=== PATIENT | male | born 1960 | race Caucasian/White ===

== ENCOUNTER 2022-05-19 04:32 | Inpatient (IN) | payer BC, SELFPAY ==
[2022-05-19] VITALS (24 sets, daily range): BP systolic 115–146; BP diastolic 69–103; PULSE 45–70; RESP 13–50; TEMP 36.2–37.2; O2SAT 98–100; BMI 28.3
--- NOTE | ~2022-05-19 | XR_ITS ---
EXAMINATION: XR chest 2V DATE: 05/19/2022 05:55 INDICATION: Chest pain. TECHNIQUE: Frontal and lateral views of the chest were obtained. COMPARISON: None. FINDINGS: The chest demonstrates clear lungs without pneumonia, pleural effusion, or pneumothorax. Th e heart size is normal. There is a prominent left paracardial fat pad. There are old healed right rib fractures. There are surgical clips in the neck. IMPRESSION: 1. No acute cardiopulmonary disease. Reviewed, dictated and finalized at location A.
--- NOTE | 2022-05-19 04:36 | ECG_ITS ---
Measurements Intervals [place] Rate: 53 P: 37 [place]: 136 QRS: 18 QRSD: 109 T: 95 QT: 410 QTc: 385 Interpretive Statements SINUS BRADYCARDIA NONSPECIFIC T-WAVE ABNORMAL ECG NO PREVIOUS ECG AVAILABLE FOR COMPARISON Electronically Signed On 05-20-2022 16:13:23 CDT by Jack Mccoy M.D.
--- NOTE | 2022-05-19 05:15 | ED.CHESTPAIN ---
HPI - Chest Pain General Chief Complaint: Chest Pain Stated Complaint: chest pain Time Seen by Provider: 05/19/22 04:51 History of Present Illness HPI narrative: 61-year-old male with history of squamous cell carcinoma presents to the emergency department for evaluation of some left-sided chest pain that woke him up from sleep. Patient states that at approximately 4 AM he woke up with left-sided chest pain that did radiate to his left shoulder or back. Patient did have some associated nausea with this. Patient reports he does have a strong history of anxiety but states he does not often have panic attacks like this. Patient states he does have a very exertional job and does not have chest pain with the exertion States he did have a short period of chest pain during the night a few days ago but it did resolve. Patient does have a history of squamous cell carcinoma. Patient denies any prior history of CA. Patient has not had a stress test. Patient has not had close follow-up with his primary care physician since 2014. Patient does take Cialis and did take this on Monday night. Related Data Allergies Allergy/AdvReac Type Severity Reaction Status Date / Time sulfanilamide Allergy Unknown Other Verified 05/19/22 05:42 No Known Allergies Allergy Verified 05/19/22 05:44 Review of Systems Review of Systems: CONSTITUTIONAL: Denies fever, chills, or sweats. EYES: Denies visual changes, redness, or discharge. ENT: Denies rhinorrhea, congestion, sore throat, or otalgia. CARDIOVASCULAR: See HPI RESPIRATORY: Denies cough or dyspnea. GASTROINTESTINAL: Denies abdominal pain, nausea, vomiting, or diarrhea. GENITOURINARY: Denies dysuria or hematuria. SKIN: Denies rash or itching. MUSCULOSKELETAL: Denies back pain, joint pain, or myalgia. NEUROLOGIC: Denies headache, numbness, or weakness. PSYCHIATRIC: History of anxiety PMFSH Family History Family History (Updated 07/24/14 @ 07:13 by DOCTOR UNKNOWN) Grandparent Family history of malignant neoplasm Social History Social History Smoking status: Never smoker Alcohol intake: never Exam Narrative: APPEARANCE: Well appearing, no pain, no distress, well-nourished. HEAD: normocephalic, atraumatic. EYES: PERRLA/EOMI, conjunctivae clear. NOSE: Normal no drainage NECK: Supple. No adenopathy, no masses. RESPIRATORY: Airway patent, respirations nonlabored. Clear to auscultation bilaterally, no rales, rhonchi, wheezing. CARDIOVASCULAR: Regular rate and rhythm without murmurs rubs or gallops. No reproducible chest wall tenderness to palpation ABDOMINAL: Soft, nontender, nondistended, normal bowel sounds MUSCULOSKELETAL: Moves all extremities. Strength/ROM intact, No edema, No calf tenderness. NEURO: Alert. Cranial nerves II through XII intact. Grossly intact SKIN: Warm, dry. Normal Color PSYCHIATRIC: Normal affect/mood. Course Course Emergency Course: EKG showed normal sinus rhythm with some T wave inversions, no evidence of acute STEMI Patient's initial troponin was elevated at 0.053. Patient was treated with aspirin, nitro and morphine on arrival and states that his pain is beginning to creep back up. Nitropaste was ordered. Additionally patient was ordered 12.5 of Cozaar, 20 mg of Crestor, 6.25 mg of carvedilol. Cardiology was consulted and they did not want any anticoagulation. They requested the hospitalist admit as primary. Hospitalist was consulted and agreed with the plan for admission. Patient will be admitted to the IMU for ops. Vital Signs Vital signs: Vital Signs Temperature 97.9 F 05/19/22 05:48 Pulse Rate 67 05/19/22 05:48 Respiratory Rate 20 05/19/22 05:48 Blood Pressure 146/103 H 05/19/22 05:48 Pulse Oximetry 98 05/19/22 05:48 Oxygen Delivery Room Air 05/19/22 05:48 Temperature 97.9 F 05/19/22 05:48 Pulse Rate 67 05/19/22 05:48 Respiratory Rate 20 05/19/22 05:48 Blood Pressure 146/103 H 05/19/22 05:48 Pulse Oximetry 9
[2022-05-19] MEDS: ASPIRIN 81 MG CHEWABLE TABLET 324 MG PO (05:17)
[2022-05-19 05:22] LABS: Basophils Absolute Auto 0.1 K/mm3 (0.0-0.1); Basophils Percent Auto 1.1 % (0.2-1.2); Eosinophils Absolute Auto 0.2 K/mm3 (0-0.3); Eosinophils Percent Auto 2.3 % (0-4.4); Hematocrit 50.8 % (42.0-52.0); Hemoglobin 16.9 g/dL (14.0-18.0); Immature Granulocyte Absolute 0.07 K/mm3 (0.00-0.031); Immature Platelet Fraction Pct 1.9 % (0.9-11.2); Lymphocytes Absolute Auto 1.57 K/mm3 (0.9-3.2); Lymphocytes Percent Auto 22.4 % (18.3-44.2); Mean Corpuscular HGB Conc 33.3 g/dl (32-36); Mean Corpuscular Hemoglobin 30.6 pg (26-34); Monocytes Absolute Auto 0.5 K/mm3 (0.1-0.6); Monocytes Percent Auto 7.4 % (2.6-8.5); Neutrophils Absolute Auto 4.6 K/mm3 (1.3-6.7); Neutrophils Percent Auto 65.8 % (45.5-73.1); Platelet Count Result 323 k/mm3 (150-375); Red Blood Count 5.52 M/mm3 (4.6-6.20); Red Cell Distribution Width 12.6 % (11.5-14.5)
[2022-05-19 05:31] LABS: INR 0.9; Prothrombin Time 11.9 Seconds (11.1-14.7)
[2022-05-19 05:32] LABS: Partial Thromboplastin Time 28.4 SECONDS (22.3-36.8)
[2022-05-19] MEDS: ONDANSETRON INJ 4 MG/2 ML VIAL IV PUSH (05:32)
[2022-05-19 05:33] LABS: Alanine Aminotransferase 26 U/L (6-50); Albumin Level 5.1 g/dL (3.5-5.1); Alkaline Phosphatase 93 U/L (38-126); Anion Gap 12 mmol/L (8-16); Aspartate Amino Transferase 30 U/L (17-59); Bilirubin,Total 0.7 mg/dL (0.2-1.3); Blood Urea Nitrogen 19 mg/dL (9-20); Calcium 9.5 mg/dL (8.4-10.2); Carbon Dioxide 24 mmol/L (22-30); Chloride 104 mmol/L (98-107); Estimated Glomerular Filt Rate > 60; Glucose 107 mg/dL (65-110); Lipase 223 U/L (23-300); Potassium 4.3 mmol/L (3.4-5.0); Sodium 140 mmol/L (137-145)
[2022-05-19] MEDS: NITROGLYCERIN SL 0.4 MG TABLET SUBLINGUAL (05:33)
[2022-05-19] MEDS: MORPHINE SULFATE (*CRX) 4 MG/ML INJ IV PUSH ×2 (05:33→06:43)
[2022-05-19 05:57] LABS: Troponin I 0.053 ng/mL (0.000-0.034)
[2022-05-19 08:06] LABS: Troponin I 0.087 ng/mL (0.000-0.034)
[2022-05-19] MEDS: SODIUM CHLORIDE 0.9% IV 1,000 ML 125 ML IV CONT ×2 (09:13→17:29)
--- NOTE | 2022-05-19 10:39 | ADMGEN ---
This patient, Austen Romo, was admitted to IMU Room 206-02 at 1030. Patient/family oriented to hospital policies and general routines including ID bracelet, bed and alarms, visiting hours, pain management, procedures, bathroom and other care routines, personal items, smoking policy, room service/diet, and visiting hours. Information on how to activate the Rapid Response Team has been discussed. Patient/Family are encouraged to report perceived risks to care and to ask questions if they do not understand what they are told or what they should do.
[2022-05-19 11:37] LABS: Troponin I 0.871 ng/mL (0.000-0.034)
[2022-05-19] MEDS: ROSUVASTATIN 10 MG TABLET 20 MG PO (12:42)
[2022-05-19] MEDS: LOSARTAN POTASSIUM 12.5 MG TABLET PO (12:42)
[2022-05-19] MEDS: NITROGLYCERIN OINTMENT 1 INCH DOSE TRANSDERM ×3 (12:42→23:27)
--- NOTE | 2022-05-19 16:31 | PM.IMHP ---
H&P: HPI History of Present Illness Date/Time: 05/19/22 16:31 Chief Complaint: chest pain Narrative: HPI narrative: 61-year-old male with history of squamous cell carcinoma presents to the emergency department for evaluation of some left-sided chest pain that woke him up from sleep.? Patient states that at approximately 4 AM he woke up with left-sided chest pain that did radiate to his left shoulder or back.? Patient did have some associated nausea with this.? Patient reports he does have a strong history of anxiety but states he does not often have panic attacks like this.? Patient states he does have a very exertional job and does not have chest pain with the exertion? States he did have a short period of chest pain during the night a few days ago but it did resolve. Patient does have a history of squamous cell carcinoma.? Patient denies any prior history of NH.? Patient has not had a stress test.? Patient has not had close follow-up with his primary care physician since 2014. currently patient is stable chest pain has improved compared to when he arrived however patient tropes are rising patient was seen by Cardiology started the patient on heparin and patient is scheduled to have a cardiac catheterization tomorrow will follow Review of Systems Constitutional: Constitutional: Reports no additional constitutional complaints [facility] Family History Family History (Updated 05/19/22 @ 10:56 by SASKIA Bourgeois) Grandparent Family history of malignant neoplasm Mother Aortic regurgitation Father Cerebellar ataxia Social History Social History Smoking status: Never smoker Alcohol intake: never Substance use type: marijuana Spiritual care concerns: No Meds Home Medications and Allergies Home Medications Medication Instructions Recorded Confirmed Type naproxen sodium 220 mg tablet 220 mg PO Q8H PRN Pain 05/19/22 05/19/22 History (Aleve) Allergies Allergy/AdvReac Type Severity Reaction Status Date / Time sulfanilamide Allergy Unknown Other Verified 05/19/22 05:42 Vital Signs Vital Signs - 24 hr 05/19/22 05:48 05/19/22 05:48 05/19/22 05:48 Temperature 97.9 F Pulse Rate 67 67 Respiratory Rate 20 Blood Pressure 146/103 H Pulse Oximetry 98 Oxygen Delivery Room Air Room Air 05/19/22 07:22 05/19/22 07:13 05/19/22 07:30 Temperature 97.9 F Pulse Rate 57 L 64 Respiratory Rate 16 17 Blood Pressure 140/94 H Pulse Oximetry 98 100 Oxygen Delivery 05/19/22 07:31 05/19/22 07:45 05/19/22 08:00 Temperature Pulse Rate 62 56 L 60 Respiratory Rate 20 16 13 Blood Pressure 144/90 H Pulse Oximetry 100 100 98 Oxygen Delivery 05/19/22 08:15 05/19/22 08:16 05/19/22 08:31 Temperature Pulse Rate 62 59 L 54 L Respiratory Rate 15 20 15 Blood Pressure 137/94 H Pulse Oximetry 100 100 100 Oxygen Delivery 05/19/22 08:49 05/19/22 09:00 05/19/22 09:01 Temperature Pulse Rate 52 L 53 L 52 L Respiratory Rate 17 15 13 Blood Pressure 133/96 H Pulse Oximetry 100 100 Oxygen Delivery 05/19/22 09:18 05/19/22 09:46 05/19/22 10:30 Temperature 97.1 F L Pulse Rate 56 L 49 L 45 L Respiratory Rate 16 14 16 Blood Pressure 142/98 H 120/70 Pulse Oximetry 98 100 100 Oxygen Delivery 05/19/22 12:00 05/19/22 12:00 05/19/22 16:00 Temperature 98.1 F 97.7 F Pulse Rate 47 L 54 L Respiratory Rate 16 16 Blood Pressure 121/69 137/89 Pulse Oximetry 100 100 Oxygen Delivery Room Air Exam Narrative: Patient is comfortable, NAD HEENT: eyes are clear and none icteric LUNGS: normal respiratory effort ABD: not distended Lower extremities: no edema SKIN: nonjaundiced Neuro: grossly intact. H&P: Results Labs Labs: Short CBC 05/19/22 Range/Units 05:10 WBC 7.0 (4.5-10.0) K/mm3 Hgb 16.9 (14.0-18.0) g/dL Hct 50.8 (42.0-52.0) % Plt Count 323 (150-375) k/mm3 BMP 05/19/22 05:10 Sodium 1
--- NOTE | 2022-05-19 16:37 | ECG_ITS ---
Measurements Intervals [place] Rate: 57 P: 43 [place]: 144 QRS: 15 QRSD: 98 T: -2 QT: 436 QTc: 428 Interpretive Statements SINUS BRADYCARDIA NONSPECIFIC T-WAVE ABNORMALITY ABNORMAL ECG COMPARED TO ECG 05/19/2022 04:44:44 NO SIGNIFICANT DIFFERENCE Electronically Signed On 05-20-2022 16:36:15 CDT by Jack Mccoy M.D.
--- NOTE | 2022-05-19 16:58 | PM.CNCAR ---
Assessment and Plan Assessment and plan (1) Acute non-ST elevation myocardial infarction (NSTEMI): Code(s): I21.4 - Non-ST elevation (NSTEMI) myocardial infarction Status: Acute Plan This is a 61-year-old man without any prior cardiac history who came in this morning with the episode of chest pain that was obviously concerning. He has some nonspecific but new T-wave changes on his electrocardiogram and a small troponin rise. He appears to be comfortable at this time. I am going to start him on intravenous heparin infusion and plan for coronary angiography tomorrow morning. Jack Mccoy MD [facility] History of Present Illness History of Present Illness Consult date/time: 05/19/22 16:58 Reason For Visit: NSTEMI Narrative: This is a 61-year-old man I am seeing at the request of the hospitalist because of some chest pain with which he was admitted early today. The patient states that he is not known to have any cardiac problems prior to this that he can recall. He was awakened from sleep at about 4:00 a.m. in the morning with significant chest pain he describes a pressure-like sensation in the center of the chest radiating little bit to the left side and associated with a sense of some nausea and some numbness in the left arm. He states that a couple of days before this he had an episode like this that lasted for less than a couple of minutes he did not seek any medical attention at that time. This episode was more intense and did not subsided so he came to the emergency department. He states that over the course of several hours in the emergency department the symptoms gradually waned and and then shortly after that dissipated completely he thinks it disappeared on its own rather than responding to any nitroglycerin that he did receive in the emergency room. His electrocardiogram down there to a demonstrated sinus rhythm with some nonspecific T-wave changes but no evidence of acute KS. Troponin level has risen slightly to 0.8. He was irritated he states this afternoon when none of the Cardiology physicians have been in to see him all day and because of that he has been held NPO and was very unhappy about that. Other than that he appears to be in no distress at this time. I did have another EKG done while I am in the room which demonstrated sinus rhythm with nonspecific but new T-wave inversion across the precordial leads. He otherwise appears to be comfortable at this time. 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 He denies any history of hypertension diabetes or dyslipidemia. He did have a significant squamous cell cancer of the head and neck treated surgically and with radiation therapy at [facility] back in 2014. He stopped following with his oncologist at [place] few years ago. The patient's laboratory data is otherwise largely unremarkable his chest x-ray looks normal. He has been given aspirin, statin beta-lilian and losartan. He also has been given a nitro glycerin paste. Review of Systems Constitutional: Constitutional: Reports no additional constitutional complaints Eyes: Eyes: Reports no additional eye complaints ENT: Reports system reviewed and no additional complaints, except as documented Cardiovascular: Cardiovascular: Reports as per HPI Respiratory: Respiratory: Reports no additional respiratory complaints Gastrointestinal: Gastrointestinal: Reports nausea Musculoskeletal: Musculoskeletal: Reports no additional musculoskeletal complaints Integumentary/Breasts: Skin/Breast: Reports system reviewed and no additional complaints, except as docu Neurologic: Reports system reviewed and no additional complaints, except as documented Endocrine: Endocrine: Reports no additional endocrine complaints Hematologic/Lymphatic: Hematologic/Lymphatic: Reports no additional hematologic/lymphatic complaints Allerg
[2022-05-19] MEDS: HEPARIN SOD/D5W 100 UNITS/ML 25,000 UNITS/250 ML BAG 10 UNITS IV CONT (17:27)
[2022-05-19] MEDS: HEPARIN SODIUM 5,000 UNITS/ML VIAL 4000 UNITS IV PUSH (17:29)
[2022-05-19 18:00] LABS: Basophils Absolute Auto 0.1 K/mm3 (0.0-0.1); Basophils Percent Auto 0.6 % (0.2-1.2); Eosinophils Absolute Auto 0.1 K/mm3 (0-0.3); Eosinophils Percent Auto 1.1 % (0-4.4); Hematocrit 42.7 % (42.0-52.0); Hemoglobin 14.5 g/dL (14.0-18.0); Immature Granulocyte Absolute 0.04 K/mm3 (0.00-0.031); Immature Granulocyte Percent A 0.5 % (0-0.5); Lymphocytes Absolute Auto 1.32 K/mm3 (0.9-3.2); Lymphocytes Percent Auto 15.5 % (18.3-44.2); Mean Corpuscular Hemoglobin 31.2 pg (26-34); Mean Corpuscular Volume 91.8 fl (80-100); Mean Platelet Volume 8.8 fl (7.4-10.4); Monocytes Absolute Auto 0.5 K/mm3 (0.1-0.6); Monocytes Percent Auto 5.8 % (2.6-8.5); Neutrophils Absolute Auto 6.5 K/mm3 (1.3-6.7); Neutrophils Percent Auto 76.5 % (45.5-73.1); Platelet Count Result 262 k/mm3 (150-375); Red Blood Count 4.65 M/mm3 (4.6-6.20); Red Cell Distribution Width 12.9 % (11.5-14.5); White Blood Count 8.5 K/mm3 (4.5-10.0)
[2022-05-19 18:12] LABS: INR 1.1; Prothrombin Time 13.5 Seconds (11.1-14.7)
[2022-05-19 18:15] LABS: Partial Thromboplastin Time 156.1 SECONDS (22.3-36.8)
[2022-05-19] MEDS: ACETAMINOPHEN 325 MG TABLET 650 MG PO (21:09)
[2022-05-19 23:26] LABS: Partial Thromboplastin Time 58.2 SECONDS (22.3-36.8)
[2022-05-19] MEDS: HEPARIN SODIUM 5,000 UNITS/ML VIAL 3000 UNITS IV PUSH (23:36)
[2022-05-20] VITALS (38 sets, daily range): BP systolic 115–165; BP diastolic 77–115; PULSE 53–74; RESP 12–21; TEMP 36.4–37.3; O2SAT 98–100
[2022-05-20] MEDS: SODIUM CHLORIDE 0.9% IV 1,000 ML 125 ML IV CONT ×2 (01:29→10:27)
[2022-05-20 04:39] LABS: Hematocrit 39.6 % (42.0-52.0); Hemoglobin 13.7 g/dL (14.0-18.0); Mean Corpuscular HGB Conc 34.6 g/dl (32-36); Mean Corpuscular Hemoglobin 31.9 pg (26-34); Mean Corpuscular Volume 92.1 fl (80-100); Mean Platelet Volume 8.8 fl (7.4-10.4); Platelet Count Result 239 k/mm3 (150-375); Red Cell Distribution Width 12.7 % (11.5-14.5); White Blood Count 9.2 K/mm3 (4.5-10.0)
[2022-05-20 04:59] LABS: Anion Gap 5 mmol/L (8-16); Blood Urea Nitrogen 13 mg/dL (9-20); Calcium 8.2 mg/dL (8.4-10.2); Carbon Dioxide 24 mmol/L (22-30); Chloride 108 mmol/L (98-107); Estimated CRCL calculation 88 ml/min; Estimated Glomerular Filt Rate > 60; Glucose 101 mg/dL (65-110); Potassium 4.5 mmol/L (3.4-5.0); Sodium 137 mmol/L (137-145)
[2022-05-20] MEDS: NITROGLYCERIN OINTMENT 1 INCH DOSE TRANSDERM (06:21)
--- NOTE | 2022-05-20 07:45 | WPDMODSED ---
Moderate Sedation Note-Pt Data Patient Data Diagnosis: Non ST-elevation AL Present Complaint: Chest pain Procedure to be performed/Plan: Left heart catheterization/possible PCI Allergies Allergy/AdvReac Type Severity Reaction Status Date / Time sulfanilamide Allergy Unknown Other Verified 05/19/22 05:42 Home Medications Medication Instructions Recorded Confirmed Type naproxen sodium 220 mg tablet 220 mg PO Q8H PRN Pain 05/19/22 05/19/22 History (Aleve) Current Medications: Active Medications Acetaminophen (Acetaminophen 325 Mg Tablet) 650 mg PO Q6H PRN PRN Reason: Mild Pain (1-3) or Fever Last Admin: 05/19/22 21:09 Dose: 650 mg Aspirin (Aspirin 81 Mg Chewable Tablet) 81 mg PO DAILY@0800 [facility] Carvedilol (Carvedilol 6.25 Mg Tablet) 6.25 mg PO Q12HR [facility] Last Admin: 05/19/22 20:49 Dose: Not Given Heparin Sodium (Porcine) (Heparin Sodium 5,000 Units/Ml Vial) 4,000 units IV PUSH PRN PRN PRN Reason: aPTT less than 55 seconds Heparin Sodium (Porcine) (Heparin Sodium 5,000 Units/Ml Vial) 3,000 units IV PUSH PRN PRN PRN Reason: aPTT 55 - 70 seconds Last Admin: 05/19/22 23:36 Dose: 3,000 units Sodium Chloride (Normal Saline Iv) 1,000 mls @ 125 mls/hr IV CONT .Q8H [facility] Last Admin: 05/20/22 01:29 Dose: 125 mls/hr Heparin Sodium/Dextrose (Heparin Sodium/D5w 100 Units/Ml) 25,000 units in 250 mls @ 10 mls/hr IV CONT .Q24H [facility]; Protocol Last Titration: 05/20/22 05:04 Dose: 1,000 units/hr, 10 mls/hr Losartan Potassium (Losartan Potassium 12.5 Mg Tablet) 12.5 mg PO DAILY [facility] Last Admin: 05/19/22 12:42 Dose: 12.5 mg Morphine Sulfate (Morphine Sulfate (*Crx) 4 Mg/Ml Inj) 4 mg IV PUSH Q2H PRN PRN Reason: Pain Rated 7-10 Nitroglycerin (Nitroglycerin Ointment 1 Inch Dose) 1 inch TRANSDERM Q6HR [facility] Last Admin: 05/20/22 06:21 Dose: 1 inch Ondansetron HCl (Ondansetron Inj 4 Mg/2 Ml Vial) 4 mg IV PUSH Q4H PRN PRN Reason: Nausea Rosuvastatin Calcium (Rosuvastatin 10 Mg Tablet) 20 mg PO DAILY FOZIA Last Admin: 05/19/22 12:42 Dose: 20 mg Sedation/Anesthesia: No previous sedation/anesthesia problems (including family history). [facility] Family History Family History (Updated 05/19/22 @ 10:56 by SASKIA Bourgeois) Grandparent Family history of malignant neoplasm Mother Aortic regurgitation Father Cerebellar ataxia Social History Social History Smoking status: Never smoker Alcohol intake: never Substance use type: marijuana Spiritual care concerns: No Mod Sed Physical Exam Physical Exam Pre Procedural Exam: Normal: Appearance, Neck, Throat, Airway, Lungs, Heart Size, Heart Rate, Heart Rhythm, Neuro Exam and Extremities Hours since solid foods: 12 Hours since liquid intake: 12 Mallampati Classification: class II Internal Medicine - PN: Obj Da Vital Signs Vital Signs: Vital Signs - 24 hr 05/19/22 08:00 05/19/22 08:15 05/19/22 08:16 Temperature Pulse Rate 60 62 59 L Respiratory Rate 13 15 20 Blood Pressure 137/94 H Pulse Oximetry 98 100 100 Oxygen Delivery 05/19/22 08:31 05/19/22 08:49 05/19/22 09:00 Temperature Pulse Rate 54 L 52 L 53 L Respiratory Rate 15 17 15 Blood Pressure Pulse Oximetry 100 100 Oxygen Delivery 05/19/22 09:01 05/19/22 09:18 05/19/22 09:46 Temperature Pulse Rate 52 L 56 L 49 L Respiratory Rate 13 16 14 Blood Pressure 133/96 H 142/98 H Pulse Oximetry 100 98 100 Oxygen Delivery 05/19/22 10:30 05/19/22 12:00 05/19/22 12:00 Temperature 36.2 C L 36.7 C Pulse Rate 45 L 47 L Respiratory Rate 16 16 Blood Pressure 120/70 121/69 Pulse Oximetry 100 100 Oxygen Delivery Room Air 05/19/22 16:00 05/19/22 16:00 05/19/22 12:00 Temperature 36.5 C Pulse Rate 54 L 46 L Respiratory Rate 16 Blood Pressure 137/89 Pulse Oximetry 100 Oxygen Delivery Room Air 05/19/22 14:00 05/19/22 16:00 05/19/22 18:00 Temperature Pulse Rate 51 L 58 L 70 Respiratory Rate Blood Pr
--- NOTE | 2022-05-20 09:36 | ECG_ITS ---
Measurements Intervals [place] Rate: 56 P: 46 [place]: 144 QRS: 14 QRSD: 110 T: -42 QT: 429 QTc: 415 Interpretive Statements SINUS BRADYCARDIA INFERIOR MYOCARDIAL INFARCTION , OF INDETERMINATE AGE [40+ ms Q WAVE AND/OR ST/T ABNORMALITY IN II/aVF] MODERATE T-WAVE ABNORMALITY, CONSIDER ANTERIOR ISCHEMIA [-0.1+ mV T WAVE IN V3/V4] COMPARED TO ECG 05/19/2022 15:42:45 NO SIGNIFICANT DIFFERENCE Electronically Signed On 05-20-2022 16:47:53 CDT by Jack Mccoy M.D.
--- NOTE | 2022-05-20 09:40 | WPDCARDPROC ---
Cardiac Cath Procedure Note Date of procedure:: 05/20/22 Performing physician:: Jack Mccoy MD Indication:: acute coronary syndrome / non ST elevation [place] Brief clinical history:: this is a 61-year-old man with no prior history of coronary disease he entered the hospital with retrosternal chest pressure yesterday morning with radiation into the left arm. His electrocardiogram shows some nonspecific but new precordial T-wave inversion and he has had a modest troponin rise. Procedure Procedure performed:: Coronary angiography left ventriculography aortic root angiography PCI(AMAURI) to the mid to distal LAD Sedation/Medication given:: fentanyl 50 mg Versed 2 mg case start time 836 case end time 9:33 a.m. Access site:: right femoral artery Estimated blood loss:: 30 cc Procedure note:: patient was brought to the microbiology lab manager in the postabsorptive state where the right femoral triangle was prepared and draped in the normal fashion. Anesthesia was provided with 1% lidocaine infiltrated locally. Using the modified Seldinger technique the right femoral artery was punctured and a 5 [place]an vascular sheath was placed. I then used a 5 [place] FL4 catheter to engage and inject the left coronary artery in multiple projections. A 5 [place] JR4 catheter was unsuccessful in engaging or identifying the right coronary ostium. I then used a 5 [place] WRP catheter and then a 5 [place] AL1 catheter all with no success in identifying the location of the right coronary ostium. I then used a 5 [place] angled pigtail catheter to perform an aortic root injection in the 45 degree BULGARIAN projection and the same catheter to inject the left ventriculogram in the 30 degree ALICEA projection. Following this the cineangiograms were reviewed. PCI of the mid to distal LAD was recommended and carried out as detailed below. Prior to PCI the 5 [place]an sheath was exchanged over a guidewire for a 6 [place]an sheath. He received 325 mg of aspirin, 600 mg of clopidogrel and was anticoagulated with bolus and infusion of Angiomax for this intervention. Following PCI the sheath was sutured into position the patient was taken to the holding area for recovery and sheath removal. The procedure was well tolerated and uncomplicated. Findings:: Hemodynamics: Central aortic pressure 152/84 left ventricle 155 over 10 and diastolic 18. No gradient across the aortic valve. Left ventricle: The left ventricle is normal in size the mid to base inferior wall is akinetic. The remainder of the LV contracts well the global ejection fraction of visually estimated to be 50%. The left main coronary artery is nicely patent the left anterior descending is a large vessel extending down to and just around the apex. The mid to distal LAD has a focal high-grade stenosis of 99% appears to be the culprit for the patient's presentation. There is SUMIT 3 flow in the vessel. More proximally the LAD has a 60% stenosis just after the origin of the major diagonal branch. This does not appear to be flow-limiting. The circumflex is a medium caliber vessel giving rise to the marginal branches the circumflex is free of disease. The right coronary artery is proximally occluded. In the aortic root injection a small amount of filling in the conus branch can be seen but no antegrade filling in the right coronary otherwise. The right coronary artery RPDA and RPL branches can be seen receiving [id number] collateral filling on the left coronary injections. Vessel is clearly proximally occluded. Intervention: The left coronary artery was engaged using a 6 [place]an CLS 3.5 guiding catheter. I used a 0.014 BMW wire to wire the LAD down into the terminal apical portion of the vessel. The lesion was targeted in the mid to distal LAD as described above. This was pre-dilated using a 2 x 15 mm Ralf balloon. This was then stented using a 2.75 x 18 mm Orsiro drug-eluting stent. Following yovana
[2022-05-20] MEDS: LOSARTAN POTASSIUM 12.5 MG TABLET PO (10:41)
--- NOTE | 2022-05-20 11:45 | SUR.PHASEII ---
1030 Dr. Mccoy at bedside talking with patient, patient's Cady and mother Pat.
--- NOTE | 2022-05-20 14:03 | SUR.PHASEII ---
0951 Patient arrived to [facility] 4 post cardiac cath for phase II recovery.
--- NOTE | 2022-05-20 14:04 | SUR.PHASEII ---
Addendum entered by Nella Brothers RN 05/20/22 14:08: ACS, LHC, and coronary stent teaching and print outs reviewed with patient/. Patient's mother also in room. Original Note: 1331 Patient was transferred to back to IMU 206-2 via hospital bed and telepack from IMU. Bedside report given and groin site check and distal pulse check done with primary RN on IMU Radha.
--- NOTE | 2022-05-20 14:06 | SUR.PHASEII ---
1208 Dr. Mccoy on unit. He was made aware of patient's elevated BP and asked if he would like to make any medication adjustments. Plan to reassess and addressed later post hemostasis following sheath pull. Info relayed in report to IMU RN Radha to follow up on this if his BP continued to be persistently elevated after he leaves phase II recovery to inform Dr. Mccoy.
[2022-05-20] MEDS: ROSUVASTATIN 10 MG TABLET 20 MG PO (14:44)
--- NOTE | 2022-05-20 16:29 | PM.IMPN ---
Progress Note: A&P Assessment and Plan (1) Acute non-ST elevation myocardial infarction (NSTEMI): Code(s): I21.4 - Non-ST elevation (NSTEMI) myocardial infarction Status: Acute Plan HPI narrative: 61-year-old male with history of squamous cell carcinoma presents to the emergency department for evaluation of some left-sided chest pain that woke him up from sleep.? Patient states that at approximately 4 AM he woke up with left-sided chest pain that did radiate to his left shoulder or back.? Patient did have some associated nausea with this.? Patient reports he does have a strong history of anxiety but states he does not often have panic attacks like this.? Patient states he does have a very exertional job and does not have chest pain with the exertion? States he did have a short period of chest pain during the night a few days ago but it did resolve. Patient does have a history of squamous cell carcinoma.? Patient denies any prior history of [place].? Patient has not had a stress test.? Patient has not had close follow-up with his primary care physician since 2014. currently patient is stable chest pain has improved compared to when he arrived however patient tropes are rising patient was seen by Cardiology started the patient on heparin and patient is scheduled to have a cardiac catheterization tomorrow will follow. 05/20/2022 interval history: today patient had a cardiac catheterization is showed high-grade stenosis and LAD and was stented, currently patient states feeling much denies any chest pain shortness of breath or dizziness, plan is to monitor patient overnight and will discharge the patient home tomorrow, patient started on dual anti-platelet therapy, will continue to monitor. Subjective Date/time seen: 05/20/22 16:29 HPI narrative: 61-year-old male with history of squamous cell carcinoma presents to the emergency department for evaluation of some left-sided chest pain that woke him up from sleep.? Patient states that at approximately 4 AM he woke up with left-sided chest pain that did radiate to his left shoulder or back.? Patient did have some associated nausea with this.? Patient reports he does have a strong history of anxiety but states he does not often have panic attacks like this.? Patient states he does have a very exertional job and does not have chest pain with the exertion? States he did have a short period of chest pain during the night a few days ago but it did resolve. Patient does have a history of squamous cell carcinoma.? Patient denies any prior history of [place].? Patient has not had a stress test.? Patient has not had close follow-up with his primary care physician since 2014. currently patient is stable chest pain has improved compared to when he arrived however patient tropes are rising patient was seen by Cardiology started the patient on heparin and patient is scheduled to have a cardiac catheterization tomorrow will follow 05/20/2022 interval history: today patient had a cardiac catheterization is showed high-grade stenosis and LAD and was stented, currently patient states feeling much denies any chest pain shortness of breath or dizziness, plan is to monitor patient overnight and will discharge the patient home tomorrow, patient started on dual anti-platelet therapy, will continue to monitor Review of Systems Constitutional: Constitutional: Reports no additional constitutional complaints Exam Narrative: Patient is comfortable, NAD HEENT: eyes are clear and none icteric LUNGS: normal respiratory effort ABD: not distended Lower extremities: no edema SKIN: nonjaundiced Neuro: grossly intact. Objective Data Vital Signs Vital Signs: Vital Signs - 24 hr 05/19/22 18:00 05/19/22 20:00 05/19/22 20:49 Temperature 98.7 F Pulse Rate 70 50 L 54 L Respiratory Rate 50 H Blood Pressure 115/75 Pulse Oximetry 98 Oxygen Delivery 05/19/22 20:00 05/19/22 20:40 05/19/22 22:0
[2022-05-20] MEDS: carvediloL 6.25 MG TABLET PO (23:04)
[2022-05-21] VITALS (7 sets, daily range): BP systolic 122–133; BP diastolic 78–89; PULSE 50–77; RESP 16–18; TEMP 36.1–36.8; O2SAT 100
--- NOTE | 2022-05-21 05:11 | ECG_ITS ---
Measurements Intervals [place] Rate: 58 P: 49 [place]: 137 QRS: -7 QRSD: 102 T: -56 QT: 423 QTc: 416 Interpretive Statements SINUS BRADYCARDIA INFERIOR MYOCARDIAL INFARCTION , OF INDETERMINATE AGE [40+ ms Q WAVE AND/OR ST/T ABNORMALITY IN II/aVF] MODERATE T-WAVE ABNORMALITY, CONSIDER ANTEROLATERAL ISCHEMIA [-0.1+ mV T WAVE IN V3- V6] COMPARED TO ECG 05/20/2022 11:00:52 NO SIGNIFICANT CHANGES Electronically Signed On 05-22-2022 7:01:49 CDT by Jack Mccoy M.D.
[2022-05-21 05:18] LABS: Hematocrit 42.8 % (42.0-52.0); Hemoglobin 14.8 g/dL (14.0-18.0); Mean Corpuscular HGB Conc 34.6 g/dl (32-36); Mean Corpuscular Hemoglobin 31.6 pg (26-34); Mean Corpuscular Volume 91.3 fl (80-100); Mean Platelet Volume 9.6 fl (7.4-10.4); Platelet Count Result 264 k/mm3 (150-375); Red Blood Count 4.69 M/mm3 (4.6-6.20); Red Cell Distribution Width 12.8 % (11.5-14.5); White Blood Count 9.6 K/mm3 (4.5-10.0)
[2022-05-21 05:28] LABS: Anion Gap 6 mmol/L (8-16); Blood Urea Nitrogen 13 mg/dL (9-20); Calcium 8.7 mg/dL (8.4-10.2); Carbon Dioxide 26 mmol/L (22-30); Chloride 106 mmol/L (98-107); Estimated CRCL calculation 79 ml/min; Estimated Glomerular Filt Rate > 60; Glucose 103 mg/dL (65-110); Potassium 4.1 mmol/L (3.4-5.0); Sodium 138 mmol/L (137-145)
[2022-05-21] MEDS: ASPIRIN 81 MG CHEWABLE TABLET PO (08:30)
[2022-05-21] MEDS: LOSARTAN POTASSIUM 12.5 MG TABLET PO (08:31)
[2022-05-21] MEDS: ROSUVASTATIN 10 MG TABLET 20 MG PO (08:31)
[2022-05-21] MEDS: carvediloL 6.25 MG TABLET PO (08:31)
[2022-05-21] MEDS: CLOPIDOGREL BISULFATE 75 MG TABLET PO (08:31)
--- NOTE | 2022-05-21 10:15 | PM.PNCARD ---
Progress Note: A&P Assessment and Plan (1) Acute non-ST elevation myocardial infarction (NSTEMI): Code(s): I21.4 - Non-ST elevation (NSTEMI) myocardial infarction Status: Acute Plan 61-year-old man with coronary artery disease presenting with non ST elevation SD. Culprit lesion was in the mid to distal LAD as detailed in the catheterization note. PCI of this lesion was nicely successful. He does have moderate stenosis more proximally in the LAD for as I mentioned there in the report I was treat medically for now especially because of its proximity to a very large diagonal. The right coronary artery is chronically occluded and receives collateral filling. He appears to be a good candidate for discharge today. He will be seen in my office for follow-up in 2-3 weeks. He is instructed to restrict himself to sedentary activity following discharge. Phase 2 cardiac rehab referral has been placed Jack Mccoy MD [facility] Subjective Date/time seen: Date of service: 05/21/22 10:15 Interval history: Follow-up visit in this 61-year-old man with: Coronary artery disease presenting with acute coronary syndrome. Catheterization demonstrated chronic total occlusion of his right coronary artery with [id number] collateral filling and posterior akinesia. He did have a high-grade 99% mid to distal LAD lesion which was the culprit for his presentation. This lesion was treated successfully using a drug-eluting stent with an excellent result. There is a stenosis in the LAD more proximally as well which is not angiographically flow-limiting and is at the origin of a very large diagonal branch. For these reasons I would recommend treating this with medication this time. Patient feels well this morning as hopeful to be discharged. Long discussion with the patient about the details of his angiographic findings yesterday as well as the importance of adherence to dual anti-platelet therapy. Exam Const: General: comfortable and no acute distress HENMT: Mouth: Yes moist mucous membranes Eyes: Sclera: sclerae normal Neck: Neck: supple and no JVD Resp: Effort & Inspection: normal respiratory effort Auscultation: clear to auscultation bilaterally Cardio: Rate: regular rate Rhythm: regular rhythm Other: No murmur no gallop GI: GI Palp: Yes Soft to palpation Auscultation: normal bowel sounds Skin: General skin exam: normal color Neuro: Other: Normal cognition Extrem: General: normal to inspection Other: No edema, normal pulses Objective Data Vital Signs Vital Signs: Vital Signs - 24 hr 05/20/22 11:45 05/20/22 10:30 05/20/22 10:45 Temperature Pulse Rate 57 L 60 59 L Respiratory Rate 14 20 13 Blood Pressure 139/98 H 151/99 H 153/102 H Pulse Oximetry 100 99 98 Oxygen Delivery Room Air Room Air Room Air 05/20/22 11:00 05/20/22 11:15 05/20/22 11:30 Temperature Pulse Rate 58 L 59 L 53 L Respiratory Rate 16 14 19 Blood Pressure 150/83 H 128/95 H 152/95 H Pulse Oximetry 100 100 100 Oxygen Delivery Room Air Room Air Room Air 05/20/22 12:45 05/20/22 12:10 05/20/22 12:00 Temperature Pulse Rate 64 65 57 L Respiratory Rate 21 H 17 13 Blood Pressure 145/91 H 145/103 H 132/89 Pulse Oximetry 100 100 100 Oxygen Delivery Room Air Room Air Room Air 05/20/22 12:15 05/20/22 12:20 05/20/22 12:05 Temperature Pulse Rate 59 L 58 L 62 Respiratory Rate 14 14 15 Blood Pressure 148/100 H 154/88 H 150/89 H Pulse Oximetry 100 100 100 Oxygen Delivery Room Air Room Air Room Air 05/20/22 12:25 05/20/22 12:30 05/20/22 13:00 Temperature Pulse Rate 55 L 56 L 57 L Respiratory Rate 16 12 16 Blood Pressure 146/115 H 138/95 H 147/96 H Pulse Oximetry 100 100 100 Oxygen Delivery Room Air Room Air Room Air 05/20/22 13:15 05/20/22 13:30 05/20/22 14:00 Temperature Pulse Rate 54 L 58 L 65 Respiratory Rate 13 13 Blood Pressure 147/103 H 144/95 H Pulse Oximetry 100 99 Oxygen Delivery Room
--- NOTE | 2022-05-21 12:45 | PM.DS ---
DS: Admitting Diagnosis Discharge Date 05/21/2022 Admitting Diagnosis Chest pain DS: Discharge Diagnosis Discharge Diagnosis (1) Acute non-ST elevation myocardial infarction (NSTEMI): Code(s): I21.4 - Non-ST elevation (NSTEMI) myocardial infarction Status: Acute Plan HPI narrative: 61-year-old male with history of squamous cell carcinoma presents to the emergency department for evaluation of some left-sided chest pain that woke him up from sleep.? Patient states that at approximately 4 AM he woke up with left-sided chest pain that did radiate to his left shoulder or back.? Patient did have some associated nausea with this.? Patient reports he does have a strong history of anxiety but states he does not often have panic attacks like this.? Patient states he does have a very exertional job and does not have chest pain with the exertion? States he did have a short period of chest pain during the night a few days ago but it did resolve. Patient does have a history of squamous cell carcinoma.? Patient denies any prior history of [place].? Patient has not had a stress test.? Patient has not had close follow-up with his primary care physician since 2014. currently patient is stable chest pain has improved compared to when he arrived however patient tropes are rising patient was seen by Cardiology started the patient on heparin and patient is scheduled to have a cardiac catheterization tomorrow will follow. 05/20/2022 interval history: today patient had a cardiac catheterization is showed high-grade stenosis and LAD and was stented, currently patient states feeling much denies any chest pain shortness of breath or dizziness, plan is to monitor patient overnight and will discharge the patient home tomorrow, patient started on dual anti-platelet therapy, will continue to monitor. DS: Summary Hospital Course Reason for hospitalization: Chief Complaint: ?chest pain Narrative: HPI narrative: 61-year-old male with history of squamous cell carcinoma presents to the emergency department for evaluation of some left-sided chest pain that woke him up from sleep.? Patient states that at approximately 4 AM he woke up with left-sided chest pain that did radiate to his left shoulder or back.? Patient did have some associated nausea with this.? Patient reports he does have a strong history of anxiety but states he does not often have panic attacks like this.? Patient states he does have a very exertional job and does not have chest pain with the exertion? States he did have a short period of chest pain during the night a few days ago but it did resolve. Patient does have a history of squamous cell carcinoma.? Patient denies any prior history of [place].? Patient has not had a stress test.? Patient has not had close follow-up with his primary care physician since 2014. ?currently patient is stable chest pain has improved compared to when he arrived however patient tropes are rising patient was seen by Cardiology started the patient on heparin? and patient is scheduled to have a cardiac catheterization? tomorrow will follow Hospital Course: patient had a cardiac catheterization is showed high-grade stenosis LAD and was stented, currently patient states feeling much denies any chest pain shortness of breath or dizziness, plan is to monitor patient overnight and will discharge the patient home tomorrow, patient started on dual anti-platelet therapy,? will continue to monitor. Today patient is clinically stable seen by his Cardiology will discharge patient home today, Time Spent with Patient Time attestation: Total time spent providing and/or coordinating discharge services: Exam Narrative: Patient is comfortable, NAD HEENT: eyes are clear and none icteric LUNGS: normal respiratory effort ABD: not distended Lower extremities: no edema SKIN: nonjaundiced Neuro: grossly intact. DS: Data Data Completed and Pending Labs on day of discharge
--- NOTE | 2022-05-21 13:22 | PC.NURSE ---
Pt left off unit stable, with and all personal belongings. Pt refused W/C.
== END 2022-05-21 13:15 | disposition home or self-care (01) | DRG 247 ==
LOC: ANHED 07:20 → ANHIMU 08:56
PROVIDERS: Internal Medicine; Specialist; Admitting Provider Internal Medicine; Emergency Provider Emergency Medicine; PCP Family Medicine; Visit Provider Family Medicine
PROC: 4A023N7 Measurement of Cardiac Sampling and Pressure, Left Heart, Percutaneous Approach (ICD-10-PCS; CPT 93452; principal; 2022-05-20 08:00)
PROC: 027034Z Dilation of Coronary Artery, One Artery with Drug-eluting Intraluminal Device, Percutaneous Approach (ICD-10-PCS; 2022-05-20 08:00)
DX: I21.4 Non-ST elevation (NSTEMI) myocardial infarction (principal); I25.10 Atherosclerotic heart disease of native coronary artery without angina pectoris; Z85.9 Personal history of malignant neoplasm, unspecified
CPT/HCPCS: 36415; 71046; 80048; 80053; 83690; 84484; 85025; 85027; 85055; 85610; 85730; 93005; 93458; 96361; 96374; 96375; 96376; 99285; A9270; C1725; C1769; C1784; C1887; C1894; C9600; G0378; G0379; J0461; J0583; J1644; J2250; J2270; J2405; J3010; J7030; J7040

== ENCOUNTER → 2022-12-28 16:29 | Outpatient (CLI) | payer BC, SELFPAY ==
--- NOTE | ~2022-12-28 | US_ITS ---
EXAMINATION: US retroperitoneal comp DATE: 12/28/2022 16:51 INDICATION: Overactive bladder TECHNIQUE: Multiple grayscale and Doppler ultrasound images of the kidneys were obtained. COMPARISON: None. FINDINGS: The right kidney measures 10.7 x 5.1 x 5.1 cm. The left kidney measures 10.4 x 5.6 x 4.7 cm . The kidneys demonstrate normal parenchymal echogenicity. There is no hydronephrosis. The bladder is sonographically normal. IMPRESSION: 1. Normal kidneys without hydronephrosis. Reviewed, dictated and finalized at location L. CARE MANAGER
== END ==
PROVIDERS: PCP Family Medicine; Visit Provider Urology
DX: N32.81 Overactive bladder (principal)
CPT/HCPCS: 76770

== ENCOUNTER 2024-07-07 19:58 | Emergency (ER) | payer BC, SELFPAY ==
[2024-07-07 20:10] VITALS: BP 145/82; PULSE 68; RESP 20; TEMP 36.7; O2SAT 100
--- NOTE | 2024-07-07 22:27 | ED.DENTAL ---
HPI - Dental/Oral General Chief complaint: Dental/Oral Stated complaint: dental abcess Time Seen by Provider: 07/07/24 22:11 History of Present Illness HPI Narrative: 63-year-old male with history of NSTEMI, hypertension and head and neck squamous cell carcinoma presents to the emergency department for dental pain. Patient states a couple days ago he began having pain in the left lower molars. States yesterday his pain subsided but he woke up this morning with a large focal area of swelling to the left mandible. He denies fever, nausea vomiting, difficulty swallowing or breathing. He does state he has poor dentition secondary to several rounds of radiation in 2015 for squamous cell carcinoma. He had lesions removed from his tongue and tonsillectomy from squamous cell carcinoma , several lymph nodes removed in his neck and had approximately 30 rounds of radiation to his head and neck. His oncologist was Dr. Haynes at [facility]. he states he has not followed up in several years but had a negative PET scan when he discontinued chemotherapy in 2014. Patient states he contacted a family member who is a nurse practitioner prescribe the patient doxycycline. He has an appointment with his dentist in 3 days. Related Data Home Medications Medication Instructions Recorded Confirmed naproxen sodium 220 mg tablet 220 mg PO Q8H PRN Pain 05/19/22 06/07/22 (Aleve) Allergies Allergy/AdvReac Type Severity Reaction Status Date / Time sulfanilamide Allergy Unknown Other Verified 07/07/24 20:16 Review of Systems Review of Systems: All systems reviewed & are unremarkable except as noted in HPI and below PMFSH Past Medical History Medical History Hypertension Lymph node cancer Overweight with body mass index (BMI) of 28 to 28.9 in adult Primary tonsillar squamous cell carcinoma Family History Family History Grandparent Family history of malignant neoplasm Mother Aortic regurgitation Father Cerebellar ataxia Social History Social History Smoking status: Never smoker Alcohol intake: never Substance use: current Substance use type: marijuana Living arrangements: with family Occupation/Education: occupation Spiritual care concerns: No Exam Narrative: GENERAL: Well-appearing, well-nourished, and in no acute distress. HEAD: Normocephalic, atraumatic. EYES: PERRLA and EOMI. ENT: Nares clear, no rhinorrhea or epistaxis. Mucous membranes moist. yellow raised plaque to the left inner cheek without tenderness. Poor dentition throughout with friable and inflamed gums. No periapical abscess. Floor mouth is soft without crepitus. Focal area of induration and edema to the left lower mandible without areas of fluctuance. No airway compromise. Patient tolerating secretions. No trismus. NECK: Supple. CHEST: Clear to auscultation. No respiratory distress. HEART: Regular rate and rhythm EXTREMITIES: Normal range of motion. No edema. SKIN: Warm, dry, no rash. NEURO: No focal deficits. Alert and oriented x3 Course Vital Signs Vital signs: Vital Signs Temperature 98.0 F 07/07/24 20:10 Pulse Rate 68 07/07/24 20:10 Respiratory Rate 20 07/07/24 20:10 Blood Pressure 145/82 H 07/07/24 20:10 Pulse Oximetry 100 07/07/24 20:10 Oxygen Delivery Room Air 07/07/24 20:10 Temperature 98.5 F 07/07/24 22:49 Pulse Rate 78 07/07/24 22:49 Respiratory Rate 16 07/07/24 22:49 Blood Pressure 137/75 07/07/24 22:49 Pulse Oximetry 100 07/07/24 22:49 Oxygen Delivery Room Air 07/07/24 20:10 MDM - Dental/Oral MDM Narrative Medical decision making narrative: 63-year-old male with remote history of squamous cell carcinoma presents to the emergency department for concerns for dental pain for the past couple of days an
[2024-07-07] MEDS: AMOXICILLIN/CLAVULANATE K 875-125 MG TAB 1 TABLET PO (22:37)
[2024-07-07 22:49] VITALS: BP 137/75; PULSE 78; RESP 16; TEMP 36.9; O2SAT 100
== END 2024-07-07 22:50 | disposition home or self-care (01) ==
PROVIDERS: Emergency Provider Physician Assistant; PCP Family Medicine
DX: K02.9 Dental caries, unspecified (principal); K13.70 Unspecified lesions of oral mucosa; R22.0 Localized swelling, mass and lump, head; I25.2 Old myocardial infarction; I10 Essential (primary) hypertension; E66.3 Overweight; Z68.27 Body mass index [BMI] 27.0-27.9, adult; Z85.828 Personal history of other malignant neoplasm of skin
CPT/HCPCS: 99283; A9270

== ENCOUNTER 2025-06-08 00:11 | Emergency (ER) | payer BC, SELFPAY ==
--- NOTE | ~2025-06-08 | XR_ITS ---
Lumbosacral Spine: AP and lateral views Clinical History: Pain Findings: There is straightening of the normal lumbar lordosis. The vertebral bodies and posterior e lements are intact. There is moderate degenerative disc narrowing at L5-S1. There is moderate to adva nced facet arthropathy throughout the lumbar spine. The sacroiliac joints are normally outlined. Impression: Moderate degenerative spondylosis overall, as detailed above. Reviewed, dictated and finalized at location M. Impression: Moderate degenerative spondylosis overall, as detailed above.
[2025-06-08 00:09] VITALS: BP 145/88; PULSE 89; RESP 16; TEMP 36.6; O2SAT 99
--- NOTE | 2025-06-08 00:46 | ED_ITS ---
HPI - Back Pain/Injury General Chief Complaint: Back Pain/Injury Stated Complaint: LOW BACK PAIN Time Seen by Provider: 06/08/25 00:23 Source: patient and family Mode of arrival: ambulatory Limitations: no limitations History of Present Illness HPI Narrative: 64 y/o WM in the ED via EMS for c/o low back pain X1 day. Pt states he felt soreness morning of June 07 when getting out of bed. Pt states he just dealt w/ the pain throughout the day, but noted it becoming unbearable later that evening, described as sharp. Pt called EMS to bring him to the ED. Pt has taken no medication for pain, as he was told not to take any NSAIDs d/t an MO 3-4 yrs ago. Pt denies any radiation of pain, CP, SOB, urinary incontinence or retention. Related Data Home Medications ?Medication ?Instructions ?Recorded ?Confirmed ?Last Taken ?Type carvedilol 12.5 mg tablet mg PO 01/20/25 Unknown History rosuvastatin 40 mg tablet mg PO 01/20/25 Unknown History Allergies Allergy/AdvReac Type Severity Reaction Status Date / Time sulfanilamide Allergy Unknown Other Verified 06/08/25 00:14 Review of Systems 2 Review of Systems: CONSTITUTIONAL: Denies fever, chills, or sweats. EYES: Denies visual changes, redness, or discharge. ENT: Denies rhinorrhea, congestion, sore throat, or otalgia. CARDIOVASCULAR: Denies chest pain, palpitations, or edema. RESPIRATORY: Denies cough or dyspnea. GASTROINTESTINAL: Denies abdominal pain, nausea, vomiting, or diarrhea. GENITOURINARY: Denies dysuria or hematuria. SKIN: Denies rash or itching. MUSCULOSKELETAL: Endorses back pain, denies radiation. Denies joint pain, or myalgia. NEUROLOGIC: Denies headache, numbness, or weakness. PSYCHIATRIC: Denies anxiety or depression. [facility] Past Medical History Medical History Primary tonsillar squamous cell carcinoma Acute non-ST elevation myocardial infarction (NSTEMI) CAD (coronary artery disease) Overweight with body mass index (BMI) of 28 to 28.9 in adult Lymph node cancer Hypertension Family History Family History Grandparent Family history of malignant neoplasm Mother Aortic regurgitation Father Cerebellar ataxia Social History Social History Smoking status: Never smoker Alcohol intake: never Substance use: current Substance use type: marijuana Do You Feel Safe in your Home?: Yes Lack of Transportation: No Lack of Food: Never True Current Housing: I Have Housing Concerned About Future Housing: No Difficulty Paying Gas/Electric Bills: No Difficulty Paying for Meds: No Currently Unemployed: No Education: Decline to Answer Difficulty w/ Childcare or Family Care: No Living arrangements: with family Occupation/Education: occupation Spiritual care concerns: No Exam 2 Narrative: GENERAL: Well-appearing, well-nourished, and in no acute distress. HEAD: Normocephalic, atraumatic. EYES: PERRLA and EOMI. ENT: Nares clear, no rhinorrhea or epistaxis. Mucous membranes moist. NECK: Supple. CHEST: Clear to auscultation. No respiratory distress. HEART: Regular rate and rhythm. No murmur heard. Normal peripheral pulses. ABDOMEN: Soft, nontender, nondistended, normal active bowel sounds. BACK: No spinal tenderness to the C/T/L spine. Slight pain w/ palpation of the lumbar paraspinal muscles. Neg straight leg raise. EXTREMITIES: Normal range of motion. No edema. SKIN: Warm, dry, no rash. NEURO: No focal deficits. Alert and oriented x3. PSYCH: Normal mood and affect. Course Vital Signs Vital signs: Vital Signs Temperature 36.6 C 06/08/25 00:09 Pulse Rate 89 06/08/25 00:09 Respiratory Rate 16 06/08/25 00:09 Blood Pressure 145/88 H 06/08/25 00:09 Pulse Oximetry 99 06/08/25 00:09 Oxygen Delivery Room Air 06/08/25 00:09 Temperature 36.6 C 06/08/25 00:09 Pulse Rate 89 06/08/25 00:09 Respiratory Rate 16 06/08/25 00:09 Blood Pressure 145/88 H 06/08/25 00:09 Pulse Oximetry 99 06/08/25 00:09 Oxygen Delivery Room Air 06/08/25 00:09 MDM - Back Pain/Injury MDM Narrative Medical decision making narrative: Patient given Toradol in the department, helping pain tremendously. CBC and CMP unremarkable, save elevated liver enzymes which can be addressed by primary care at next appointment. Patient able to walk lb and with pain, but denies urinary retention, incontinence, and paresthesias. X-ray normal showing no fracture Differential Diagnosis Differential diagnosis: Likely lumbar radiculopathy, sciatica and strain of lumbar region Medical Records Attestation: I reviewed the patient's medical records. Lab Data Attestation: I reviewed the patient's lab results. 06/08/25 00:33 06/08/25 00:33 Labs: Lab Results 06/08/25 Range/Units 00:33 WBC Pending RBC Pending Hgb Pending Hct Pending MCV Pending MCH Pending MCHC Pending RDW Pending Plt Count Pending MPV Pending Immature Gran % (Auto) Pending Neut % (Auto) Pending Lymph % (Auto) Pending [place] % (Auto) Pending Eos % (Auto) Pending Baso % (Auto) Pending Lymph # (Auto) Pending [place] # (Auto) Pending Eos # (Auto) Pending Baso # (Auto) Pending Abs Immat Gran (auto) Pending Absolute Neuts (auto) Pending Absolute Nucleated RBC Pending Nucleated RBC % Pending Sodium Pending Potassium Pending Chloride Pending Carbon Dioxide Pending Anion Gap Pending BUN Pending Creatinine Pending Estim Creat Clear Calc Pending Estimated GFR Pending Glucose Pending Calcium Pending Magnesium Pending Total Bilirubin Pending AST Pending ALT Pending Alkaline Phosphatase Pending Total Protein Pending Albumin Pending Lipase Pending Imaging Data Attestation: I personally reviewed and interpreted this imaging study as follows: My impression: No evidence of fracture to vertebral bodies, pedicles, or facet joint noted. Discharge Plan Discharge Clinical Impression: Strain of lumbar region Qualifiers: Encounter type: initial encounter Qualified Code(s): S39.012A - Strain of muscle, fascia and tendon of lower back, initial encounter Patient Disposition: Home Condition: Stable Instructions: Antibiotic Form, Acute Low Back Pain (ED) Additional Instructions: Take Medrol Dosepak as prescribed. Can take [id number] Tylenol for general aches and pains. Muscle relaxers prescribed to also assist with pain, be sure to not drive or operate heavy equipment when taking. Hot water soaks and massage as discussed. To yoga or Pilates to assist with core strength and stretching. Patient Language: Gabonese Prescriptions: New methylprednisolone [Medrol (Mathew)] 4 mg tablets,dose pack See Rx Instructions .ROUTE .COMPLEX Qty: 21 0RF Rx Instructions: orally per package directions methocarbamol 750 mg tablet 750 mg PO TID Qty: 30 0RF No Action rosuvastatin 40 mg tablet PO carvedilol 12.5 mg tablet PO aspirin [Children's Aspirin] 81 mg Tablet,Chewable 81 mg PO DAILY@0800 Qty: 30 0RF nitroglycerin [Nitrostat] 0.4 mg Tablet, Sublingual 0.4 mg sublingual Q5MIN PRN (Reason: Chest Pain) Qty: 25 0RF losartan 25 mg tablet 12.5 mg PO DAILY Qty: 30 0RF Follow-up/Referrals: Marques Hines MD [Primary Care Provider] - 1 Week Time of Disposition: 01:49
[2025-06-08 00:51] LABS: Hematocrit 43.4 % (42.0-52.0); Hemoglobin 14.5 g/dL (14.0-18.0); Immature Granulocyte Percent A 0.9 % (0-0.5); Lymphocytes Absolute Auto 0.36 K/mm3 (0.9-3.2); Mean Corpuscular HGB Conc 33.4 g/dl (32-36); Mean Corpuscular Hemoglobin 30.4 pg (26-34); Mean Corpuscular Volume 91.0 fl (80-100); Nucleated Red Blood Cells Absolute Auto 0.000 K/mm3 (0.0-0.012); Nucleated Red Blood Cells Perc 0.0 % (0.0-0.2); Platelet Count Result 128 k/mm3 (150-375); Red Blood Count 4.77 M/mm3 (4.6-6.20); White Blood Count 4.2 K/mm3 (4.5-10.0)
[2025-06-08] MEDS: KETOROLAC 30 MG/ML VIAL (*BKC) IV PUSH (00:51)
[2025-06-08 00:58] LABS: Alanine Aminotransferase 62 U/L (6-50); Albumin Level 4.6 g/dL (3.5-5.1); Alkaline Phosphatase 75 U/L (38-126); Anion Gap 10 mmol/L (4-12); Aspartate Amino Transferase 82 U/L (17-59); Bilirubin,Total 1.2 mg/dL (0.2-1.3); Blood Urea Nitrogen 17 mg/dL (9-20); Calcium 9.2 mg/dL (8.4-10.2); Carbon Dioxide 23 mmol/L (22-30); Chloride 104 mmol/L (98-107); Estimated CRCL calculation 65 ml/min; Estimated Glomerular Filt Rate > 60; Glucose 122 mg/dL (65-110); Lipase 128 U/L (23-300); Magnesium 2.1 mg/dL (1.6-2.3); Potassium 4.0 mmol/L (3.4-5.0); Sodium 137 mmol/L (137-145); Total Protein 7.5 g/dL (6.3-8.2)
[2025-06-08 01:01] LABS: Add Urine Microscopic? YES; Appearance Urine Clear (Clear); Glucose Urine UA Negative (Negative); Leukocyte Esterase Ur Negative LEU/UL (Negative); Nitrate Urine Negative (Negative); Non Pathogenic Casts 0-2; Specific Grav Ur 1.007 (1.001-1.035)
[2025-06-08 02:09] VITALS: BP 122/73; PULSE 76; RESP 18; O2SAT 100
== END 2025-06-08 02:10 | disposition home or self-care (01) ==
PROVIDERS: Emergency Medicine; Emergency Provider Registered Nurse Emergency; PCP Family Medicine
DX: S39.012A Strain of muscle, fascia and tendon of lower back, initial encounter (principal); I25.2 Old myocardial infarction; I25.10 Atherosclerotic heart disease of native coronary artery without angina pectoris; I10 Essential (primary) hypertension; Z85.818 Personal history of malignant neoplasm of other sites of lip, oral cavity, and pharynx; Z85.79 Personal history of other malignant neoplasms of lymphoid, hematopoietic and related tissues; Z79.82 Long term (current) use of aspirin; Z79.899 Other long term (current) drug therapy; X58.XXXA Exposure to other specified factors, initial encounter
CPT/HCPCS: 36415; 72100; 80053; 81001; 83690; 83735; 85025; 96374; 99284; J1885